=== PATIENT | female | born 1970 | race Caucasian/White ===

== ENCOUNTER 2019-04-08 18:38 | Emergency (ER) | payer OTHER ==
[~2019-04-08] VITALS: Ht 167.6 cm; Wt 68.0 kg
--- NOTE | ~2019-04-08 | EKG ---
[place], [place] ELECTROCARDIOGRAM REPORT NAME: TA JACKMAN UNIT #: [id number] ROOM: DOCTOR: EPIPHANY DRAFT REPORT BIRTHDATE: [birth year] [facility] Test Date: 2019-04-08 Test Time: 19:18:05 Pat Name: TA JACKMAN Department: Room: Gender: F Cause Analyst: : 1970 Requested By: SANTIAGO ELLIOTT Order Number: [id number] Reading MD: Alvin Peoples MD Measurements Intervals [place] Rate: 63 P: 50 RI: 163 QRS: 90 QRSD: 96 T: 26 QT: 450 QTc: 461 Interpretive Statements Sinus rhythm Borderline right axis deviation Borderline T abnormalities, anterior leads Electronically Signed On 04-10-2019 14:34:58 PDT by Alvin Peoples MD CM:EKGRPT:ELECTROCARDIOGRAM REPORT [id number] SANTIAGO ELLIOTT EPIPHANY DRAFT REPORT SANTIAGO ELLIOTT
[~2019-04-08 18:38] MED LIST: AMOXICILLIN500 MG PO; CIPRO250 MG PO; CIPROFLOXACIN500 MG PO; CLINDAMYCIN300 MG PO; HYDROCODONE BIT1 T11 PO; IRON FERROUS S325 MG PO; MACROBID100 M1 PO; NKHM PO; PEN-VEE K500 MG PO; PENICILLIN VK500 MG PO; PYRIDIUM200 MG PO; VICODIN ES 7501 TAB PO; ZYRTEC10 MG PO
[2019-04-08 19:08] LABS: BASO # 0.1 10*3/uL (0.0-0.1); BASO % 1.3 % (0.0-1.0); EOS # 0.2 10*3/uL (0.0-0.4); EOS % 3.2 % (1.0-4.0); HEMATOCRIT 43.7 % (37.0-47.0); HEMOGLOBIN 14.1 g/dl (12.0-16.0); LYMPH # 1.1 10*3/uL (1.3-4.4); MEAN CELL VOLUME 91.2 fl (81.0-99.0); MEAN CORPUSCULAR HGB 29.4 pg (27.0-31.0); MEAN CORPUSCULAR HGB CONC 32.3 g/dl (33.0-37.0); MEAN PLATELET VOLUME 9.6 fl (9.6-12.3); MONO # 0.4 10*3/uL (0.1-1.0); MONO % 5.9 % (3.0-9.0); NEUT # 4.2 10*3/uL (2.3-7.9); NEUT % 70.4 % (47.0-73.0); PLATELET COUNT AUTOMATED 239 10*3/uL (130-400); RED BLOOD COUNT 4.79 10*6/uL (4.10-5.10); RED CELL DISTRI WIDTH 14.3 % (0-14.5)
[2019-04-08 19:25] LABS: BILIRUBIN NEGATIVE (NEGATIVE); BLOOD NEGATIVE (NEGATIVE); CLARITY CLEAR (CLEAR); COLOR YELLOW (YELLOW); GLUCOSE NEGATIVE (NEGATIVE); KETONE NEGATIVE (NEGATIVE); LEUKO ESTERASE 2+ (NEGATIVE); NITRITE NEGATIVE (NEGATIVE); PH 6.5 (5.0-9.0); SPECIFIC GRAVITY <= 1.005 (1.005-1.030); UROBILINOGEN 0.2 E.U./dl (0.2-1.0)
[2019-04-08 19:29] LABS: ALBUMIN 3.8 gm/dl (3.1-4.5); ALKALINE PHOSPHATASE 55 U/L (45-117); BUN 12 mg/dl (7-24); CHLORIDE 104 mmol/L (98-107); CREATININE 0.73 mg/dL (0.55-1.02); POTASSIUM 3.5 mmol/L (3.5-5.1); SGOT/AST 8 IU/L (3-35); SGPT/ALT 17 U/L (12-78); SODIUM 138 mmol/L (136-145); TOTAL PROTEIN 7.2 gm/dL (6.4-8.2)
[2019-04-08 19:52] LABS: BACTERIA 4+; EPITHELIAL CELLS 51-100
[2019-04-08] MEDS ORDERED: CEFUROXIME AXE500 MG PO (19:53)
== END 2019-04-08 20:07 | disposition home or self-care (01) ==
LOC: ED 18:38
PROVIDERS: Nurse Practitioner Family
DX: N39.0 Urinary tract infection, site not specified (principal); R42 Dizziness and giddiness; F17.200 Nicotine dependence, unspecified, uncomplicated; Z79.2 Long term (current) use of antibiotics; Z79.899 Other long term (current) drug therapy